=== PATIENT | female | born 1960 | race Caucasian/White ===

== ENCOUNTER 2016-04-22 09:24 | Emergency (ER) | payer BC ==
[2016-04-22 10:21] VITALS: BP 168/108
--- NOTE | 2016-04-22 12:01 | ERNOTE ---
Date of Service: 04/22/16 Time Seen by Provider: 04/22/16 11:44 Stated Complaint: COUGH,SORE THROAT Presenting Symptoms:: cough Source: patient Exam Limitations: no limitations Immunizations: IMMUNIZATION HX History of Influenza Vaccine Yes Hx Pneumococcal Vaccination Yes Allergies/Adverse Reactions: Allergies erythromycin base Adverse Reaction (Verified 04/22/16 11:45) Nausea Home Medications: HOME MEDICATIONS Albuterol Sulfate [Ventolin HFA] 2 puff IH Q4H PRN #1 inhaler 04/22/16 [Last Taken Unknown] Aspirin [Aspirin Chewable] 81 mg PO DAILY 04/22/16 [Last Taken Unknown] Azithromycin [Zithromax] 500 mg PO NOW #6 tab 04/22/16 [Last Taken Unknown] HYDROcodone/ACETAMINOPHEN [[place] 5-325] 1 - 2 tab PO QID PRN #30 tab 04/22/16 [ Last Taken Unknown] Metoprolol Tartrate [Lopressor] 50 mg PO BID 04/22/16 [Last Taken Unknown] Multivitamin [One Daily Essential] 1 each PO DAILY 04/22/16 [Last Taken Unknown] Pantoprazole Sodium [Protonix] 40 mg PO DAILY 04/22/16 [Last Taken Unknown] - History of Present Ilness Narrative: 5 days ago, started with pressure in head, followed by non productive cough. No fever. Not any better. Guaifenesin or Nyquill not helping. Timing: getting worse Severity: mild, moderate Frequency/Possible Cause: Reports: other - rare episodes, one sister with asthma Modifying Factors - Improves: Reports: nothing Modifying Factors - Worsens: Reports: activity, coughing Associated Symptoms: Reports: cough, nasal drainage, sore throat - now resolved , headache with coughing Review of Systems - Review of Systems Constitutional: Present: malaise EYE: Present: no symptoms reported ENT: Present: See HPI Respiratory: Present: See HPI Cardiology: Present: no symptoms reported Gastrointestinal/Abdominal: Present: no symptoms reported Genitourinary: Present: no symptoms reported Musculoskeletal: Present: no symptoms reported Skin: Present: no symptoms reported Neurological: Present: headache Endocrine: Present: no symptoms reported Hematologic/Lymphatic: Present: no symptoms reported Psych: Present: no symptoms reported All Other Systems: All systems neg except as marked - Patient's Past Medical History Patient History - Medical: No pertinent hx Patient History - Cardiac/Respiratory: Hypertension, Hyperlipidemia Patient History - Cancer: Breast Patient History - Surgical Procedures: Hysterectomy, Other - Social History Living Situations: home Alcohol Use: none Drug Use: none Physical Exam - Physical Exam General Appearance: Present: wd/wn, alert, no apparent distress Eye Exam: Normal inspection: bilateral, PERRL: bilateral, EOMI: bilateral Ears, Nose, Throat: Present: normal ENT inspection, hearing grossly normal, nasal congestion, pharyngeal erythema. Absent: abnormal TM (R), abnormal TM (L) Neck: Present: normal inspection, nontender Respiratory: Present: no respiratory distress, wheezing Cardiovascular/Chest: Present: regular rate, rhythm, no murmur Gastrointestinal/Abdominal: Present: normal bowel sounds, nontender, nondistended, soft, no organomegaly Back Exam: Present: normal inspection Extremity Exam: Present: normal inspection, no edema Neurological Exam: Present: alert, oriented, normal mood/affect Skin Exam: Present: normal color, warm/dry ED Progress - Vital Signs Patient's Vital Signs:: I have reviewed the patient's vital signs. Vital Signs: Vital Signs 04/22/16 10:17 Temperature 36.9 C Pulse Rate 75 Respiratory 16 Rate Blood Pressure 168/108 O2 Sat by Pulse 97 Oximetry - Progress/Reassessment Chief Complaint: Cough Departure - Departure Clinical Impression: Acute asthmatic bronchitis Condition: Good Instructions: Acute Bronchitis Additional Instructions: Followup with your doctor end of this week. Referrals: Nba Louie MD [Primary Care Provider] - Prescriptions: Albuterol Sulfate [Ventolin HFA] 2 puff IH Q4H PRN #1 inhaler PRN Reason: tightness in chest Azithromycin [Zithromax] 500 mg PO NOW #6 tab HYDROcodone/ACETAMINOPHEN [Rector 5-325] 1 - 2 tab PO QID PRN #30 tab PRN Reason: Cough
== END 2016-04-22 12:28 | disposition home or self-care (01) ==
LOC: ER 09:24
DX: J45.901 Unspecified asthma with (acute) exacerbation (principal); Z90.710 Acquired absence of both cervix and uterus; Z85.3 Personal history of malignant neoplasm of breast; I10 Essential (primary) hypertension

== ENCOUNTER 2016-08-13 01:05 | Emergency (ER) | payer BC ==
[2016-08-13 01:16] VITALS: BP 123/84
[2016-08-13] MEDS ORDERED: AMOXICILLIN TRIHYDRATE 250 MG CAPSULE PO ONE (01:31)
[2016-08-13] MEDS ORDERED: AMOXICILLIN TRIHYDRATE 250 MG CAPSULE ONE (01:32)
--- NOTE | 2016-08-13 01:36 | ERNOTE ---
Time Seen by Provider: 08/13/16 01:16 Stated Complaint: SINUS,SORE THROAT,COUGH Presenting Symptoms:: cough, other - voice hoarseness Exam Limitations: no limitations Immunizations: IMMUNIZATION HX History of Influenza Vaccine Yes Hx Pneumococcal Vaccination Yes Allergies/Adverse Reactions: Allergies acetaminophen [From [place]] Allergy (Verified 08/13/16 01:17) azithromycin [From Zithromax Z-Akira] Allergy (Verified 08/13/16 01:17) hydrocodone [From [place]] Allergy (Verified 08/13/16 01:17) erythromycin base Adverse Reaction (Verified 04/22/16 11:45) Nausea Home Medications: HOME MEDICATIONS Albuterol Sulfate [Ventolin HFA] 2 puff IH Q4H PRN #1 inhaler 04/22/16 [Last Taken Unknown] Aspirin [Aspirin Chewable] 81 mg PO DAILY 04/22/16 [Last Taken Unknown] Metoprolol Tartrate [Lopressor] 50 mg PO BID 04/22/16 [Last Taken Unknown] Multivitamin [One Daily Essential] 1 each PO DAILY 04/22/16 [Last Taken Unknown] Pantoprazole Sodium [Protonix] 40 mg PO DAILY PRN 04/22/16 [Last Taken Unknown] Amoxicillin 500 mg PO TID #21 capsule 08/13/16 [Last Taken Unknown] Ibuprofen 400 mg PO Q6H PRN 08/13/16 [Last Taken Unknown] Pseudoephedrine HCl [Sudafed 12-Hour] 1 tab PO Q12H #24 tab 08/13/16 [Last Taken Unknown] guaiFENesin/DEXTROMETHORPHAN [Robitussin-Dm] 5 ml PO BID PRN #1 btl 08/13/16 [ Last Taken Unknown] - History of Present Ilness Narrative: here for cough and voice hoarseness no sinus pain , some drainage Review of Systems - Review of Systems Constitutional: Present: fatigue EYE: Present: no symptoms reported ENT: Present: See HPI Respiratory: Present: See HPI Cardiology: Present: no symptoms reported Gastrointestinal/Abdominal: Present: no symptoms reported Genitourinary: Present: no symptoms reported - Patient's Past Medical History Patient History - Medical: No pertinent hx Patient History - Cardiac/Respiratory: Hypertension Patient History - Cancer: Breast Patient History - Surgical Procedures: Cancer Surgery, Hysterectomy, Other Patient History - Other: None - Social History Living Situations: home Psych History: No pertinent hx Smoking Status: Never smoker Alcohol Use: occasionally Drug Use: none - Immunizations Hx Pneumococcal Vaccination: Yes History of Influenza Vaccine: Yes Physical Exam - Physical Exam General Appearance: Present: wd/wn, alert, no apparent distress Ears, Nose, Throat: Present: normal ENT inspection, normal pharynx, other - this patient has no sinus tenderness on my exam she has no postnasal drainage by examination of the oral cavity. She does have a very hoarse voice this patient has laryngitis Neck: Present: normal inspection Respiratory: Present: no respiratory distress, normal breath sounds, lungs clear Cardiovascular/Chest: Present: regular rate, rhythm, no murmur Extremity Exam: Present: normal inspection, normal range of motion Neurological Exam: Present: alert, oriented, normal mood/affect, no motor/ sensory deficits ED Progress - Vital Signs Patient's Vital Signs:: I have reviewed the patient's vital signs. Vital Signs: Vital Signs 08/13/16 01:10 Temperature 36.6 C Pulse Rate 100 Respiratory 18 Rate Blood Pressure 123/84 O2 Sat by Pulse 95 Oximetry - Progress/Reassessment Chief Complaint: Upper Respiratory Symptoms Departure - Departure Clinical Impression: Laryngitis Upper respiratory infection Qualifiers: URI type: unspecified URI Qualified Code(s): J06.9 - Acute upper respiratory infection, unspecified Clinical Impression: (Ruled Out): Upper respiratory infection due to marito influenza virus Disposition: Home self-care Condition: Good Instructions: Laryngitis, [id number] Referrals: Nba Louie MD [Primary Care Provider] - Prescriptions: Amoxicillin 500 mg PO TID #21 capsule Pseudoephedrine HCl [Sudafed 12-Hour] 1 tab PO Q12H #24 tab guaiFENesin/DEXTROMETHORPHAN [Robitussin-Dm] 5 ml PO BID PRN #1 btl PRN Reason: Cough
--- OUTSIDE RECORDS SUMMARY | 2016-08-13 01:48 | XMS REPORT | Continuity of Care Document ---
:1960 Author Organization [facility] ([facility]) Address [address] [place] [address] Phone [phone] Care Team Providers Name Role Phone Nba Louie Primary Care Provider [phone] Source Comments This disclosure is being made pursuant to the Care Everywhere program, applicable federal and state laws, and may not contain all informaitonavailable regarding this patient.[facility] ([facility]) Active Allergies and Adverse Reactions Allergen Noted Date Severity Reactions Comments Erythromycin Nausea & Vomiting Current Medications Prescription Sig. Disp. Refills Start Date End Date Status pantoprazole (PROTONIX) 40 take 40 mg by Active mg tablet mouth daily. metoPROLol (LOPRESSOR) 25 Take 50 mg by Active mg tablet mouth 2 times daily. CALCIUM CARBONATE/VITAMIN take 2 Tabs by Active D3 (CALCIUM + D PO) mouth daily. MULTIVITAMINS take 1 Tab by Active (MULTI-VITAMIN PO) mouth. GUAR GUM (BENEFIBER PO) take 1 Tab by Active mouth daily. Zinc 50 mg Tab Take 50 mg by Active mouth daily. Active Problems Problem Noted Date FH: breast cancer in first degree relative 08/30/2008 Social History Tobacco Use Types Packs/Day Years Used Date Never Assessed Last Filed Vital Signs Vital Sign Reading Time Taken Blood Pressure 145/89 08/30/2010 2:41 PM CDT Pulse 73 08/30/2010 2:41 PM CDT Temperature 37 C (98.6 F) 08/30/2010 2:41 PM CDT Respiratory Rate 18 08/30/2010 2:41 PM CDT Height 1.61 m (5' 3.39") 08/30/2010 2:41 PM CDT Weight 83.598 kg (184 lb 4.8 oz) 08/30/2010 2:41 PM CDT Body Mass Index 32.25 08/30/2010 2:41 PM CDT Oxygen Saturation 97% 09/28/2009 3:21 PM CDT Plan of Care Health Maintenance Due Date Last Done Comments HCV Screening 1960 Hepatitis B Vaccine (1 of 3 - Primary Series) 1960 Tdap Vaccine 1972 Lipid Disorder Screening 1979 MMR Vaccine 1979 Td Vaccine 1979 Cervical Cancer Screening 1991 Mammogram 2001 Colonoscopy 2011 Influenza Vaccine: Seasonal (#1) 10/31/2015 Results from Last 3 Months Not on file
== END 2016-08-13 01:47 | disposition home or self-care (01) ==
LOC: ER 01:05
DX: J04.0 Acute laryngitis (principal); J06.9 Acute upper respiratory infection, unspecified; Z85.3 Personal history of malignant neoplasm of breast

== ENCOUNTER 2016-08-26 14:10 | Emergency (ER) | payer BC ==
[2016-08-26 14:19] VITALS: BP 155/86
--- OUTSIDE RECORDS SUMMARY | 2016-08-26 14:54 | XMS REPORT | Continuity of Care Document ---
:1960 Author Organization [facility] ([facility]) Address [address] [place] [address] Phone [phone] Care Team Providers Name Role Phone Nba Louie Primary Care Provider [phone] Source Comments This disclosure is being made pursuant to the Care Everywhere program, applicable federal and state laws, and may not contain all informaitonavailable regarding this patient.[facility] ([facility]) Active Allergies and Adverse Reactions Allergen [...] Mammogram 2001 Colonoscopy 2011 Influenza Vaccine: Seasonal (Season Ended) 2016 Results from Last 3 Months Not on file
--- NOTE | 2016-08-26 15:13 | ERNOTE ---
Date of Service: 08/26/16 Time Seen by Provider: 08/26/16 14:47 Stated Complaint: CONGESTION Presenting Symptoms:: cough, fever, other - sinus congestion Source: patient Exam Limitations: no limitations Immunizations: IMMUNIZATION HX Immunizations Up to Date Yes History of Influenza Vaccine Yes Hx Pneumococcal Vaccination No Allergies/Adverse Reactions: Allergies acetaminophen [From [place]] Allergy (Verified 08/13/16 01:17) azithromycin [From Zithromax Z-Akira] Allergy (Verified 08/13/16 01:17) hydrocodone [From [place]] Allergy (Verified 08/13/16 01:17) erythromycin base Adverse Reaction (Verified 04/22/16 11:45) Nausea Home Medications: HOME MEDICATIONS Albuterol Sulfate [Ventolin HFA] 2 puff IH Q4H PRN #1 inhaler 04/22/16 [Last Taken Unknown] Aspirin [Aspirin Chewable] 81 mg PO DAILY 04/22/16 [Last Taken Unknown] Metoprolol Tartrate [Lopressor] 50 mg PO BID 04/22/16 [Last Taken Unknown] Multivitamin [One Daily Essential] 1 each PO DAILY 04/22/16 [Last Taken Unknown] Pantoprazole Sodium [Protonix] 40 mg PO DAILY PRN 04/22/16 [Last Taken Unknown] Amoxicillin 500 mg PO TID #21 capsule 08/13/16 [Last Taken Unknown] Ibuprofen 400 mg PO Q6H PRN 08/13/16 [Last Taken Unknown] Pseudoephedrine HCl [Sudafed 12-Hour] 1 tab PO Q12H #24 tab 08/13/16 [Last Taken Unknown] guaiFENesin/DEXTROMETHORPHAN [Robitussin-Dm] 5 ml PO BID PRN #1 btl 08/13/16 [ Last Taken Unknown] Sulfamethoxazole/Trimethoprim [Bactrim Ds] 1 tab PO BID #28 tab 08/26/16 [Last Taken Unknown] - History of Present Ilness Narrative: Pt. comes in with c/o B sinus congestion scratchy throat and cough. Pt. was seen here for nasal congetin and cough two weeks ago and treated with abx which improved the symptoms slightly but the nasal congestion never went awy and the cough went away but returned. Pt. denies any SOB, CP, NVD, or aggravating factors. Review of Systems - Review of Systems Constitutional: Present: fever, fatigue, malaise. Absent: chills, weakness EYE: Present: no symptoms reported ENT: Present: nose congestion, nasal drainage - yellow. Absent: sore throat Respiratory: Present: cough, wheezing. Absent: shortness of breath Cardiology: Present: no symptoms reported. Absent: chest pain, palpitations, edema Gastrointestinal/Abdominal: Present: no symptoms reported. Absent: nausea, vomiting, diarrhea, abdominal pain Genitourinary: Present: no symptoms reported Musculoskeletal: Present: no symptoms reported. Absent: back pain, joint pain Skin: Present: no symptoms reported Neurological: Present: no symptoms reported. Absent: headache, dizziness/light- headedness, numbness, tingling All Other Systems: All systems neg except as marked - Patient's Past Medical History Patient History - Medical: No pertinent hx Patient History - Cardiac/Respiratory: Hypertension Patient History - Cancer: Breast Patient History - Surgical Procedures: Cancer Surgery, Hysterectomy, Other Patient History - Other: None - Social History Living Situations: home Abuse History: No History of abuse Psych History: No pertinent hx Smoking Status: Never smoker Alcohol Use: occasionally Drug Use: none - Immunizations Immunizations Up to Date: Yes Hx Pneumococcal Vaccination: No History of Influenza Vaccine: Yes Physical Exam - Physical Exam General Appearance: Present: wd/wn, alert, no apparent distress Eye Exam: Normal inspection: bilateral, PERRL: bilateral, EOMI: bilateral Ears, Nose, Throat: Present: nasal congestion, sinus pain/drainage - maxillary and frontal, tonsillar exudate - clear Neck: Present: normal inspection, nontender. Absent: lymphadenopathy (R), lymphadenopathy (L) Respiratory: Present: no respiratory distress, normal breath sounds, no accessory muscle use, chest nontender, lungs clear Cardiovascular/Chest: Present: regular rate, rhythm, no murmur, normal peripheral pulses Gastrointestinal/Abdominal: Present: normal bowel sounds, nontender Back Exam: Present: normal inspection Extremity Exam: Present: normal inspection Neurological Exam: Present: alert, oriented, normal mood/affect, no motor/ sensory deficits Skin Exam: Present: normal color, warm/dry. Absent: pallor, skin rash ED Progress - Vital Signs Patient's Vital Signs:: I have reviewed the patient's vital signs. Vital Signs: Vital Signs 08/26/16 14:14 Temperature 37.5 C Pulse Rate 91 Respiratory 16 Rate Blood Pressure 155/86 O2 Sat by Pulse 91 Oximetry - Progress/Reassessment Chief Complaint: Upper Respiratory Symptoms Departure - Departure Clinical Impression: Acute maxillary sinusitis Qualifiers: Recurrence: recurrent Qualified Code(s): J01.01 - Acute recurrent maxillary sinusitis Disposition: Home self-care Condition: Good Instructions: Sinusitis, Adult, [id number] Additional Instructions: Please take inhaler four times a day until drainage improves. Referrals: Nba Louie MD [Primary Care Provider] - Prescriptions: Sulfamethoxazole/Trimethoprim [Bactrim Ds] 1 tab PO BID #28 tab
== END 2016-08-26 15:10 | disposition home or self-care (01) ==
LOC: ER 14:10
DX: J01.01 Acute recurrent maxillary sinusitis (principal); Z85.3 Personal history of malignant neoplasm of breast